=== PATIENT | female | born 1990 | race Caucasian/White ===

== ENCOUNTER 2022-01-25 12:52 | Outpatient (CLI) | payer BC | END 2022-01-25 12:53 | disposition home or self-care (01) | LOC: CSHRAD 12:52 | PROVIDERS: ATTEND Surgery | DX: K21.9 Gastro-esophageal reflux disease without esophagitis (principal); K44.9 Diaphragmatic hernia without obstruction or gangrene | CPT/HCPCS: 74220 ==